=== PATIENT | male | born 1995 | race African-American/Black ===

== ENCOUNTER 2019-09-28 05:01 | Emergency (ER) | payer MEDICAID ==
[~2019-09-28] VITALS: Ht 172.7 cm; Wt 81.6 kg
--- NOTE | 2019-09-28 05:01 | NUR ---
PT SATHYA TREADWELL. AMBULATED WITHOUT ASSISTANCE FROM EMS GURNEY TO ER BED 4
--- NOTE | 2019-09-28 05:05 | NUR ---
Dr. Ogden examining patient.
[2019-09-28 05:14] VITALS: BP 118/87
--- NOTE | 2019-09-28 05:16 | NUR ---
23 Y/O MALE BROUGHT INTO ER BY EMR. PER EMR, PT WAS FOUND IN FRONT OF A STORE, AND C/O WEAKNESS, AND STATED TO TAKE HIM TO THE HOSPITAL, EMR ALSO STATED UPON ARRIVING AT ER PT STATED HE HAD BILATERAL FOOT PAIN. PT IS REFUSING TO TALK. WHEN THE PT IS SPEAKING HE IS ONLY SPEAKING TO MALE STAFF. STATING " I' M READY FOR SLEEP, THAT'S IT, I'M GOING TO RELAX, AND SLEEP." HAS ALTERED LOC W/[employer]. NO RESPIRATORY DISTRESS NOTED. SIDERAIL X2, WILL CONTINUE TO MONITOR. REFUSES TO ANSWER QUESTIONS: PMH; KNOWN ALLERGIES
[2019-09-28 05:59] VITALS: BP 118/87
--- NOTE | 2019-09-28 06:01 | NUR ---
Patient discharged with v/s stable. Written and verbal after care instructions explained. Patient verbalized understanding. Ambulatory with steady gait. All questions addressed prior to discharge. Advised to follow up with PMD. Pt refused to sign discharge instructions. Refused to D/C paperwork.
== END 2019-09-28 06:00 | disposition home or self-care (01) ==
LOC: MED 05:01
DX: Z00.00 Encounter for general adult medical examination without abnormal findings (principal)
CPT/HCPCS: 99283

== ENCOUNTER 2019-09-28 09:51 | Emergency (ER) | payer BC, MEDICAID ==
[~2019-09-28] VITALS: Ht 172.7 cm; Wt 90.7 kg
--- NOTE | 2019-09-28 09:51 | NUR ---
Patient BIBA BLS, transferred to bed 11. RN evaluating patient at bedside.
--- NOTE | 2019-09-28 09:53 | NUR ---
Dr. Schafer is evaluating the patient at bedside.
--- NOTE | 2019-09-28 09:53 | NUR ---
[facility]
[2019-09-28 09:57] VITALS: BP 145/89
--- NOTE | 2019-09-28 09:58 | NUR ---
23 Y/O BIBA FROM STREETS. PER EMS, PT SEEN WALKING TALKING TO SELF. PD CALLED BY BYSTANDERS. SENT TO ER FOR FURTHER EVALUATION, PT NOT PLACED ON HOLD. PT A/OX2. PT UNCOOPERATIVE, DENIED CHANGING TO GOWN. PT NOT ANSWERING QUESTIONS, QUIET, CALM, NON-COMBATIVE. PT NKA. UNABLE TO OBTAIN HX,RX. SIDE RAIL X2.
[2019-09-28 10:40] LABS: BARBITURATE, URINE NEGATIVE ng/ml (NEG <=200); BENZODIAZEPINE, URINE NEGATIVE ng/mL (NEG <=200); CANNABINOID, URINE NEGATIVE ng/mL (NEG <=50); COCAINE, URINE NEGATIVE ng/mL (NEG <=300); OPIATE, URINE NEGATIVE ng/mL (NEG <=2000); PHENCYCLIDINE SCREEN,URINE NEGATIVE ng/mL (NEG <=25)
--- NOTE | 2019-09-28 11:11 | NUR ---
PROVIDED PATIENT WITH HOMELESS PACKET, FOOD, ADEQUATE CLOTHING. PT AMBULATE. HOMELESS PATIENT WAIVER FORM SIGNED.
[2019-09-28 11:12] VITALS: BP 139/82
--- NOTE | 2019-09-28 11:12 | NUR ---
Patient discharged with v/s stable. Written and verbal after care instructions given and explained. Patient verbalized understanding. Ambulatory with steady gait. All questions addressed prior to discharge. Advised to follow up with PMD.
== END 2019-09-28 11:12 | disposition home or self-care (01) ==
LOC: MED 09:51
DX: Z00.00 Encounter for general adult medical examination without abnormal findings (principal)
CPT/HCPCS: 80305; 81002; 99283

== ENCOUNTER 2020-02-07 10:19 | Emergency (ER) | payer BC, MEDICAID ==
[~2020-02-07] VITALS: Ht 167.6 cm; Wt 72.6 kg
[2020-02-07 10:22] VITALS: BP 129/72
--- NOTE | 2020-02-07 10:30 | NUR ---
RECEIVED A 24/M FROM EMS WITH A C/O RIGHT ANKLE PAIN SECONDARY TO EXCESSIVE WALKING. NO OBVIOUS DEFORMITY NOTED. ABLE TO TRANSFER FROM EMS GURNEY TO ED BED WITHOUT DIFFICULTY. PLACED INTO BED FOR MSE.
--- NOTE | 2020-02-07 10:32 | NUR ---
TO RADIOLOGY VIA W/C.
--- NOTE | 2020-02-07 10:37 | NUR ---
RETURN FROM XRAY.
--- NOTE | 2020-02-07 10:41 | NUR ---
PT REQUESTING TO SPEAK WITH AUTO ADJUDICATION SPECIALIST -- CONTACTED ON SITE AUTOMATIC HEAD SAWYER. LENI DHALIWAL TO SPEAK WITH PATIENT.
--- NOTE | 2020-02-07 11:01 | NUR ---
DRIVER ENGINEER AT BEDSIDE WITH PATIENT.
[2020-02-07 11:24] VITALS: BP 129/72
--- NOTE | 2020-02-07 11:24 | NUR ---
Patient discharged with v/s stable. Written and verbal after care instructions given and explained. Patient alert, oriented and verbalized understanding of instructions. Ambulatory with steady gait. All questions addressed prior to discharge. ID band removed. Patient advised to follow up with PMD. Rx of NAPROXEN given. Patient educated on indication of medication including possible reaction and side effects. Opportunity to ask questions provided and answered. APPROPRIATE RESOURCES PROVIDED TO PT VIA PSYCHIATRIC NURSE PRACTITIONER.
--- NOTE | 2020-02-07 11:59 | NUR ---
IDENTITY MANAGEMENT DEVELOPER NOTE: SW MET WITH PATIENT PER PATIENT'S REQUEST. PATIENT STATED THAT HE WAS RENTING A ROOM BUT WAS INTERESTED IN FURTHER RESOURCES DUE TO PATIENT UNSATISFIED WITH LIVING SITUATION. SW PROVIDED COMMUNITY RESOURCES AND HAD DISCUSSION WITH PATIENT. PATIENT REQUESTED INFORMATION ON EMPLOYMENT AND COMMUNITY HOUSING. SW PROVIDED APPROPRIATE RESOURCES AND PROVIDED EDUCATION ON [employer] BENEFITS. PATIENT VERBALIZED APPRECIATION AND STATED THAT HE WILL GO TO [facility] OFFICE REGARDING CELL PHONE. NO FURTHER NEEDS IDENTIFIED.
== END 2020-02-07 11:24 | disposition home or self-care (01) ==
LOC: MED 10:19
DX: S93.401A Sprain of unspecified ligament of right ankle, initial encounter (principal); X58.XXXA Exposure to other specified factors, initial encounter; Y93.89 Activity, other specified; Y92.89 Other specified places as the place of occurrence of the external cause; Y99.8 Other external cause status
CPT/HCPCS: 73610; 99283; Q0092